=== PATIENT | male | born 1965 | race African-American/Black ===

== ENCOUNTER → 2016-07-03 | Outpatient (CLI) | payer BC ==
[~2016-07-03] MED LIST: BLOOD PRESSURE; COUMADIN7.5 MG PO; DOXAZOSIN MESYLA4 MG PO; HYDROCHLOROTHIA25 MG PO; HYDROCODON-ACE1 EAC7 PO; LEVAQUIN750 MG PO; LOVENOX80 MG/0.8 INJ; MOTRIN400 MG PO; PRAVASTATIN SOD20 MG PO; XARELTO15 MG PO
--- NOTE | ~2016-07-03 | CR242 ---
[facility] A Service of [facility] RADIOLOGY TEXT RESULTS PATIENT: CITLALLI DAS LOCATION: [facility] : 69 UNIT #: [id number] AGE: [address]: ELVI CERRATO SEX: M ORDER DR: [id number] [facility] [address] [place], [place] [address] [id number] O MR#: [id number] Acc #: [id number] NAME: CITLALLI DAS : 1965 SEX: M STUDY DATE/TIME: 07/03/2016 17:06 UNIT: [facility] ROOM: STUDY DESCRIPTION: CR Thoracic Spine 2 Views Attending Physician: Raza Hernández Referring Physician: Raza Hernández Ordering Physician: Raza Hernández Primary Care Physician: Noemy Arango M.D. MEDICAL IMAGING REPORT This report is preliminary unless electronic signature is present EXAM Thoracic spine, 07/03. INDICATIONS Mid-back pain and neck pain for 1 week. No trauma. FINDINGS AP and lateral examination of the dorsal segment shows normal mineralization and a satisfactory anatomical dorsal kyphosis. All body heights, interspaces, and posterior elements are normal anatomically without any indication of malignancy, trauma, unusual paraspinal soft tissue density mass, or congenital defect. IMPRESSION Normal thoracic spine. Dictated by... Parrish Nevarez Jr., M.D. THIS IS AN ELECTRONICALLY VERIFIED REPORT Parrish Nevarez Jr., M.D. at 07/04/2016 3:46 PM CHEPE/garcia TD: 07/04/2016 14:19 JOB #: [id number] MEDICAL IMAGING REPORT Page 1 of 1 COPY
--- NOTE | ~2016-07-03 | CR58 ---
[facility] A Service of [facility] RADIOLOGY TEXT RESULTS PATIENT: CITLALLI DAS LOCATION: [facility] : 69 UNIT #: [id number] AGE: [address]: ELVI CERRATO SEX: M ORDER DR: [id number] [facility] [address] [place], [place] [address] [id number] O MR#: [id number] Acc #: [id number] NAME: CITLALLI DAS : 1965 SEX: M STUDY DATE/TIME: 07/03/2016 17:05 UNIT: [facility] ROOM: STUDY DESCRIPTION: CR Cervical Spine 2 or 3 Views Attending Physician: Raza Hernández Referring Physician: Raza Hernández Ordering Physician: Raza Hernández Primary Care Physician: Noemy Arango M.D. MEDICAL IMAGING REPORT This report is preliminary unless electronic signature is present EXAM Cervical spine, 07/03/2016. HISTORY Neck pain and left arm pain and tingling for 1 week. No trauma. FINDINGS 3 views of the cervical spine were obtained. No fracture or subluxation is seen. There is degenerative disc space narrowing and endplate spurring at C5-C6. Prevertebral soft tissues are normal. Remaining disc spaces are normal. IMPRESSION Degenerative disc disease at C5-C6; otherwise, negative cervical spine. Dictated by... Parrish Nevarez Jr., M.D. THIS IS AN ELECTRONICALLY VERIFIED REPORT Parrish Nevarez Jr., M.D. at 07/04/2016 3:46 PM CHEPE/micheline TD: 07/04/2016 14:21 JOB #: [id number] MEDICAL IMAGING REPORT Page 1 of 1 COPY
== END | disposition home or self-care (01) ==
LOC: CRAD 16:44
DX: M54.2 Cervicalgia (principal); M54.5 Low back pain; M50.122 Cervical disc disorder at C5-C6 level with radiculopathy
CPT/HCPCS: 72040; 72070